=== PATIENT | male | born 1990 | race Caucasian/White ===

== ENCOUNTER 2023-01-12 02:53 | Inpatient (IN) | payer BC, OTHER ==
[2023-01-12] MEDS ORDERED: Boostrix 0.5 ML (Tdap) VIAL (>/=7 yrs of age) ONE (02:55)
[2023-01-12] MEDS ORDERED: CEFAZOLIN 2 GM VIAL ONE (02:55)
[2023-01-12] MEDS ORDERED: Ondansetron PF 4 MG/2 ML Vial ONE ×2 (03:00→03:35)
[2023-01-12] MEDS ORDERED: fentaNYL 50 mcg/mL 1 mL Vial ONE ×2 (03:00→03:41)
[2023-01-12 03:17] LABS: #Basophils 0.1 thou/uL (0.0-0.2); #Eosinphils 0.1 thou/uL (0.0-0.7); #Monocytes 0.9 thou/uL (0.11-0.59); %Basophils 0.9 % (0.0-1.0); %Eosinophils 1.2 % (0.0-10.0); %Lymphocytes 45.2 % (21.0-51.0); %Neutrophils 44.3 % (42.0-75.0); Mean Corpuscular HGB CONC 35.3 g/dL (32.0-36.0); Mean Corpuscular Hemoglobin 31.8 pg (27.0-31.0); Mean Corpuscular Volume 90.2 fl (78.0-98.0); Mean Platelet Volume 10.1 fL (7.4-10.4); Platelet Count 284 10x3/uL (130-400); RBC Distribution Width 11.5 % (11.5-14.5); White Blood Cell (WBC) Count 11.2 10x3/uL (4.8-10.8)
[2023-01-12 03:27] LABS: INR-International Normal Ratio 0.9; PTT 25.8 sec (22.9-36.1)
[2023-01-12] MEDS ORDERED: Tranexamic Acid 1,000 MG/10 ML VIAL ONE ×2 (03:27→03:31)
[2023-01-12] MEDS ORDERED: Dextrose 5% in Water 1,000 ML IV PRN (03:29)
[2023-01-12] MEDS ORDERED: Ondansetron PF 4 MG/2 ML Vial IVP PRN (03:29)
[2023-01-12] MEDS ORDERED: Ondansetron ODT 4 MG TAB PO PRN (03:29)
[2023-01-12] MEDS ORDERED: Ipratropium/Albuterol 3 ML NEB NEB PRN (03:29)
[2023-01-12] MEDS ORDERED: Glucagon 1 MG/ML KIT IM PRN (03:29)
[2023-01-12] MEDS ORDERED: Morphine 4 MG/ML VIAL SLOW IVP PRN (03:29)
[2023-01-12] MEDS ORDERED: Promethazine HCl 25 MG/ML VIAL IM PRN (03:29)
[2023-01-12] MEDS ORDERED: Dextrose 50% Abboject 50 ML SYRINGE SLOW IVP PRN (03:29)
[2023-01-12] MEDS ORDERED: TETANUS, DIPHTHERIA TOX,ADULT (TDVAX) 0.5 ML VIAL IM ONE (03:29)
[2023-01-12] MEDS ORDERED: AVITENE TOP SCH (03:30)
[2023-01-12 04:06] LABS: ALT (SGPT) 22 U/L (8-55); AST (SGOT) 24 U/L (5-34); Albumin 4.1 g/dL (3.5-5.0); Alkaline Phosphatase 64 U/L (40-110); Anion Gap 15 mmol/L (10-20); BUN (Urea Nitrogen) 9 mg/dL (8.9-20.6); Bilirubin, Total 0.3 mg/dL (0.2-1.2); Calc. Creatinine Clearance 0 mL/min (70-130); Calcium 9.4 mg/dL (7.8-10.44); Carbon Dioxide 19 mmol/L (22-29); Chloride 106 mmol/L (98-107); Estimated GFR 84; Globulin 2.1 g/dL (2.4-3.5); Glucose 147 mg/dL (70-105); Lipase 94 U/L (8-78); Protein, Total 6.2 g/dL (6.0-8.3); Sodium 137 mmol/L (136-145)
[2023-01-12 04:24] LABS: Lactic Acid 5.4 mmol/L (0.5-2.2)
[2023-01-12] MEDS: Morphine 2 MG/ML VIAL SLOW IVP PRN ×2 (04:54→05:26)
[2023-01-12] MEDS: Sodium Chloride 0.9% 1,000 ML IV SCH ×4 (05:30→19:55)
[2023-01-12] MEDS ORDERED: Electrolyte Replacement Protocol 1 EACH FS SCH (05:45)
[2023-01-12] MEDS ORDERED: Potassium Chloride 20 MEQ in Premix Bag 1 BAG IVPB SCH ×2 (06:00→09:00)
[2023-01-12] MEDS: fentaNYL 50 mcg/mL 1 mL Vial SLOW IVP PRN ×2 (06:18→08:17)
[2023-01-12 06:36] VITALS: BMI 21.9
[2023-01-12] MEDS: Ketorolac Tromethamine 30 MG/ML VIAL IVP SCH ×3 (08:29→19:39)
[2023-01-12] MEDS ORDERED: Dexamethasone 4 MG in Sodium Chloride 0.9% 50 ML IVPB SCH (08:30)
[2023-01-12] MEDS ORDERED: Iopamidol-370 76% 500 ML MDV (1 ML CHARGE) ONE (08:31)
[2023-01-12] MEDS: Dexamethasone 4 mg/ml Vial SLOW IVP SCH ×2 (08:36→16:21)
[2023-01-12] MEDS: Famotidine/PF 20 mg/2ml Vial SLOW IVP SCH ×2 (08:37→19:40)
[2023-01-12 09:46] LABS: Hemoglobin 11.9 g/dL (14.0-18.0); Mean Corpuscular HGB CONC 34.8 g/dL (32.0-36.0); Mean Corpuscular Hemoglobin 31.9 pg (27.0-31.0); Mean Corpuscular Volume 91.7 fl (78.0-98.0); Mean Platelet Volume 10.2 fL (7.4-10.4); Platelet Count 214 10x3/uL (130-400); RBC Distribution Width 11.7 % (11.5-14.5); Red Blood Cell (RBC) Count 3.73 mill/uL (4.70-6.10)
[2023-01-12 09:50] LABS: Lactic Acid 2.5 mmol/L (0.5-2.2); White Blood Cell (WBC) Count 21.5 10x3/uL (4.8-10.8)
[2023-01-12 09:52] LABS: Anion Gap 10 mmol/L (10-20); BUN (Urea Nitrogen) 8 mg/dL (8.9-20.6); Calc. Creatinine Clearance 88 mL/min (70-130); Calcium 8.2 mg/dL (7.8-10.44); Carbon Dioxide 21 mmol/L (22-29); Chloride 109 mmol/L (98-107); Estimated GFR 93; Glucose 142 mg/dL (70-105); Potassium 4.4 mmol/L (3.5-5.1); Sodium 136 mmol/L (136-145)
[2023-01-12] MEDS ORDERED: Acetaminophen W/ Codeine 5 ML UDCUP PO SCH (10:00)
[2023-01-12] MEDS: Acetaminophen W/ Codeine 5 ML UDCUP PO PRN ×2 (16:21→20:39)
[2023-01-13] MEDS: Dexamethasone 4 mg/ml Vial SLOW IVP SCH ×2 (00:49→08:45)
[2023-01-13] MEDS: Sodium Chloride 0.9% 1,000 ML IV SCH (00:52)
[2023-01-13] MEDS: Ketorolac Tromethamine 30 MG/ML VIAL IVP SCH ×2 (02:25→08:44)
[2023-01-13 05:11] VITALS: TEMP 98.1
[2023-01-13 05:32] LABS: #Monocytes 0.7 thou/uL (0.11-0.59); #Neutrophils 14.8 thou/uL (1.40-6.50); %Basophils 0.2 % (0.0-1.0); %Lymphocytes 4.2 % (21.0-51.0); %Monocytes 4.1 % (0.0-10.0); %Neutrophils 91.2 % (42.0-75.0); Hemoglobin 10.6 g/dL (14.0-18.0); Mean Corpuscular HGB CONC 34.3 g/dL (32.0-36.0); Mean Corpuscular Hemoglobin 31.7 pg (27.0-31.0); Mean Corpuscular Volume 92.5 fl (78.0-98.0); Mean Platelet Volume 10.3 fL (7.4-10.4); Platelet Count 183 10x3/uL (130-400); RBC Distribution Width 12.1 % (11.5-14.5); Red Blood Cell (RBC) Count 3.34 mill/uL (4.70-6.10); White Blood Cell (WBC) Count 16.3 10x3/uL (4.8-10.8)
[2023-01-13 05:49] LABS: Lactic Acid 1.3 mmol/L (0.5-2.2)
[2023-01-13 05:53] LABS: Anion Gap 8 mmol/L (10-20); BUN (Urea Nitrogen) 7 mg/dL (8.9-20.6); Calc. Creatinine Clearance 96 mL/min (70-130); Calcium 8.7 mg/dL (7.8-10.44); Carbon Dioxide 22 mmol/L (22-29); Chloride 110 mmol/L (98-107); Estimated GFR 103; Glucose 145 mg/dL (70-105); Potassium 4.2 mmol/L (3.5-5.1); Sodium 136 mmol/L (136-145)
[2023-01-13] MEDS: Famotidine/PF 20 mg/2ml Vial SLOW IVP SCH (08:44)
[2023-01-13] MEDS: Acetaminophen W/ Codeine 5 ML UDCUP PO PRN (09:13)
[2023-01-13] MEDS ORDERED: Acetaminophen/Codeine 30-300mg Tablet PO PRN (10:06)
[2023-01-13] MEDS ORDERED: Ibuprofen 200 MG TAB PO PRN (10:32)
[2023-01-13 11:39] VITALS: BP 133/82
== END 2023-01-13 14:36 | disposition home or self-care (01) | DRG 605 ==
LOC: ERS 02:53 → CCU 03:29 → EEVIPCON 03:29 → SURG A 12:23
PROVIDERS: ADMIT Surgery; ATTEND Surgery
DX: S10.93XA Contusion of unspecified part of neck, initial encounter (principal); E87.20 Acidosis, unspecified; S15.20 Unspecified injury of external jugular vein; S01.532A Puncture wound without foreign body of oral cavity, initial encounter; Y35.021A Legal intervention involving injury by handgun, law enforcement official injured, initial encounter; D72.829 Elevated white blood cell count, unspecified; E87.6 Hypokalemia; Z87.891 Personal history of nicotine dependence
CPT/HCPCS: 36415; 70450; 70486; 70498; 71045; 72125; 80048; 80053; 83605; 83690; 85025; 85610; 85730; 86850; 86900; 86901; 90471; 90714; 90715; 93005; 96365; 96375; 96376; G0390; J1100; J1885; J2272; J2405; J3010; J3480; J7050; Q9967; S0028

== ENCOUNTER 2023-03-04 07:46 | Outpatient (CLI) | payer OTHER ==
[2023-03-04] MEDS ORDERED: Iopamidol 370 76% 100 ML VIAL ONE (08:36)
== END 2023-03-04 07:47 | disposition home or self-care (01) ==
LOC: CT 07:46
PROVIDERS: ATTEND Oral & Maxillofacial Surgery
DX: S02.5XXA Fracture of tooth (traumatic), initial encounter for closed fracture (principal); X95.9XXA Assault by unspecified firearm discharge, initial encounter
CPT/HCPCS: 70487; Q9967

== ENCOUNTER 2023-04-03 05:29 | Day surgery (SDC) | payer OTHER ==
[2023-03-29 13:20] VITALS: BMI 20.5
[2023-04-03] MEDS ORDERED: Famotidine/PF 20 mg/2ml Vial ONE (06:14)
[2023-04-03] MEDS ORDERED: fentaNYL 50 mcg/mL 1 mL Vial ONE (06:14)
[2023-04-03] MEDS ORDERED: CEFAZOLIN 2 GM VIAL ONE (06:24)
[2023-04-03] MEDS ORDERED: Dexamethasone 4 mg/ml Vial ONE (06:24)
[2023-04-03] MEDS ORDERED: Sodium Chloride 0.9% 100 ML ONE (06:24)
[2023-04-03] MEDS ORDERED: Bacitracin Zinc Ointment 30 gm TUBE ONE (06:44)
[2023-04-03] MEDS ORDERED: EPINEPHrine 1 MG/ML AMP ONE (06:44)
[2023-04-03] MEDS ORDERED: Lidocaine 1% (PF) 30 ML VIAL ONE (06:44)
[2023-04-03] MEDS ORDERED: PROPOFOL 200 MG/20 ML VIAL ONE (07:10)
[2023-04-03] MEDS ORDERED: Ketorolac Tromethamine 30 MG/ML VIAL ONE (07:10)
[2023-04-03] MEDS ORDERED: Lidocaine 1% PF 5 ML VIAL ONE (07:10)
[2023-04-03] MEDS ORDERED: Metoclopramide HCl 10 MG/2 ML VIAL ONE (07:10)
[2023-04-03] MEDS ORDERED: Succinylcholine 200 MG/10 ml SYRINGE FS ONE (07:10)
[2023-04-03] MEDS ORDERED: Meperidine HCl/PF 25 MG/ML VIAL ONE (08:44)
== END 2023-04-03 09:50 | disposition home or self-care (01) ==
LOC: SDC 05:29
PROVIDERS: ATTEND Oral & Maxillofacial Surgery
PROC: 0JC10ZZ Extirpation of Matter from Face Subcutaneous Tissue and Fascia, Open Approach (ICD-10-PCS; principal; 2023-04-03)
DX: S01.83XA Puncture wound without foreign body of other part of head, initial encounter (principal); W34.00XA Accidental discharge from unspecified firearms or gun, initial encounter; Z18.89 Other specified retained foreign body fragments
CPT/HCPCS: J0171; J1100; J1885; J2001; J2175; J2704; J2765; J3010; J3490; S0028